=== PATIENT | male | born 1970 | race Caucasian/White ===

== ENCOUNTER 2017-04-27 06:04 | Emergency (ER) | payer SELFPAY ==
[~2017-04-27] VITALS: Ht 182.9 cm; Wt 102.0 kg
[2017-04-27] MEDS ORDERED: LORTAB 10-325 M1 TAB PO (06:40)
[2017-04-27] MEDS ORDERED: AMOXICILLIN/PO500 MG PO (06:40)
[2017-04-27 06:44] VITALS: BP 154/99
== END 2017-04-27 06:40 | disposition home or self-care (01) | DRG 603 ==
LOC: ED 06:04
DX: L03.011 Cellulitis of right finger (principal); F17.210 Nicotine dependence, cigarettes, uncomplicated; S60.021A Contusion of right index finger without damage to nail, initial encounter; X58.XXXA Exposure to other specified factors, initial encounter